=== PATIENT | female | born 1985 ===

== ENCOUNTER 2017-03-01 07:24 | Inpatient (IN) ==
[2017-03-01] MEDS ORDERED: FAMOTIDINE 20 MG/2 ML VIAL IV ONE (07:29)
[2017-03-01] MEDS ORDERED: CITRIC ACID/SODIUM CITRATE 30 ML UDCUP PO ONE (07:29)
[2017-03-01] MEDS ORDERED: CLINDAMYCIN INJ 900 MG in PREMIX 1 EACH IV ONE (07:33)
[2017-03-01] MEDS: LACTATED RINGERS 1,000 ML IV SCH ×2 (07:45→09:05)
[2017-03-01] MEDS ORDERED: OXYTOCIN/LR 30 UNIT/1,000 ML BAG IV ONE (07:49)
[2017-03-01] MEDS ORDERED: OXYTOCIN 10 UNIT/ML VIAL IM ONE (07:49)
[2017-03-01 07:56] LABS: Basophils % 0.4 % (0.0-0.8); Eosinophils # 0.1 10*3/uL (0.0-0.87); Hematocrit 35.3 VOL% (35.7-47.0); Hemoglobin 11.3 GM/DL (12.0-16.0); Immature Granulocytes % 0.4 %; Immature Granulocytes Absolute 0.03 #; Lymphocytes # 2.6 10*3/uL (1.4-4.0); Lymphocytes % 37.6 % (21.3-54.2); Mean Corpuscular Hemoglobin 27 PG (27-34); Mean Corpuscular Volume 85.5 FL (87-102); Mean Platelet Volume 11.7 FL (9.6-12.0); Monocytes # 0.4 10*3/uL (0.11-0.8); Monocytes % 5.4 % (1.7-12.7); Neutrophils # 3.8 10*3/uL (1.4-7.4); Neutrophils % 55.2 % (38.7-73.9); Platelet Count 207 T/CUMM (130-400); Red Blood Count 4.13 MC/CUMM (3.8-5.5); Red Cell Distribution Width 15.3 % (9.3-17.3); White Blood Count 6.9 T/CUMM (4-12)
[2017-03-01 08:30] LABS: Alanine Aminotransferase < 9 U/L (13-56); Albumin 2.2 G/DL (3.4-5.0); Alkaline Phosphatase 180 U/L (45-117); Aspartate Amino Transferase 13 U/L (0-37); Blood Urea Nitrogen 12 MG/DL (7-18); Calcium 8.5 MG/DL (8.5-10.1); Glucose 112 MG/DL (74-106); Osmolality,Calculated 275.7 MOS/KG (273-304); Potassium 4.4 MMOL/L (3.5-5.1); Sodium 138 MMOL/L (136-145)
[2017-03-01] MEDS ORDERED: PROPOFOL 200 MG/20 ML VIAL IV ONE (09:12)
[2017-03-01] MEDS ORDERED: ONDANSETRON 4 MG/2 ML VIAL ONE (09:12)
[2017-03-01 10:10] LABS: Cord Venous Blood HCO3 20.4 MMOL/L; Cord Venous Blood PCO2 38.9 MMHG; Cord Venous Blood PO2 37.3
--- NOTE | 2017-03-01 10:13 | OB/GYN History & Physical ---
History of Present Illness Chief complaint: section, elective sterilization History of present illness: Ms. Mc is a 31 year old female 4 with 4 living children, repeat section 2 who presents for repeat section elective sterilization risks benefits thoroughly discussed she is in full agreement patient's approximately 39 weeks gestation with an EDC of 03/08/2017 patient consented to an elective sterilization recommended that if the lower uterine segment was extremely thin then we will proceed with the bilateral tubal ligation. Home Medications Medication Instructions Recorded Confirmed Type Vits #90/Iron Fum/FA 1 tablet PO DAILY 01/12/17 02/17/17 History [ Formula Tablet] Allergies Allergy/AdvReac Type Severity Reaction Status Date / Time Amoxicillin Allergy Severe HIVES Verified 02/17/17 16:29 guaifenesin [From Robitussin] Allergy RASH Verified 02/17/17 16:29 Medical,Surgical,& Family Hx - Medical History Neurology: No history of: Seizures Reproductive: No history of: Ectopic , Complication - Surgical History Reproductive Surgeries: Patient denies;: Section - Family History Family History: Reports;: Family Diabetes (FATHER MGM PGM) Denies;: Additional Family History - Social History Smoking Status: Never smoker Frequency of Alcohol Use: None 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: 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 - Constitutional Vitals: Vital Signs Temp Pulse Resp BP Pulse Ox 03/01/17 08:00 97.7 F 81 20 138/72 99 General appearance: morbidly obese - Antepartum / Post Post Exam Cervix -Dilatation: Thick and closed - Head Head exam: Present: normal inspection - Eye Eye exam: Present: EOMI Pupils: Present: KAYLEEN - ENT ENT exam: Present: normal exam - Neck Neck exam: Present: normal inspection - Respiratory Respiratory exam: Present: clear to auscultation bilaterally - Breast Breasts: as per HPI Menstruation: as per HPI - Cardiovascular Cardiovascular exam: Present: regular rate and rhythm - GI/Abdominal GI/Abdominal exam: Present: normal bowel sounds - Extremities Exam Extremities exam: Present: normal inspection - Back Exam Back exam: Present: normal inspection - Neurological Exam Neurological exam: Present: alert, oriented X3 - Psychiatric Psychiatric exam: Present: normal affect - Skin Skin exam: Present: normal color Results - Labs CBC & BMP: 03/01/17 07:50 03/01/17 07:50
[2017-03-01] MEDS ORDERED: IBUPROFEN 800 MG TABLET PO PRN (10:16)
[2017-03-01] MEDS ORDERED: SIMETHICONE CHEW 80 MG TABLET PO PRN (10:16)
[2017-03-01] MEDS ORDERED: OXYTOCIN/LR 20 UNIT/1,000 ML BAG IV ONE ×2 (10:16→13:57)
[2017-03-01] MEDS ORDERED: ONDANSETRON 4 MG/2 ML VIAL IV PRN (10:16)
[2017-03-01] MEDS ORDERED: RHO(D) IMMUNE GLOBULIN 300 MCG SYRINGE IM ONE (10:16)
[2017-03-01] MEDS ORDERED: ACETAMINOPHEN 325 MG TABLET PO PRN (10:16)
--- NOTE | 2017-03-01 10:16 | Operative Note ---
Date of procedure: 03/01/17 Procedure: Preoperative diagnosis: Repeat section, elective sterilization Postoperative diagnosis: Same Anesthesia:[] Regional anesthesia Estimated blood loss: []300 mL Surgeon: Dr. Lamar Findings: []Extremely thin lower uterine segment, elective sterilization, male infant, delivered at 939 a.m., weight was 8 lbs. 15 oz., Apgars was 9 at 1 minute and 9 at 5 minutes Complications: None Procedure: Low transverse section, bilateral tubal ligation The patient was taken to the operating suite heart tones were obtained prior to and after regional anesthesia was obtained. She was placed in supine position her abdomen was prepped and draped in usual manner for major abdominal surgery. Through an abdominal incision the skin, subcutaneous, fascial layer and peritoneal the abdomen was entered. The bladder flap was created and a low transverse incision was made.. Fluid was clear and normal amount X, Apgars, the placenta was delivered and sent to lab for further evaluation. Injected with intrauterine Pitocin. The first layer of the uterus was closed with #1 Vicryl in a continuous locking manner. Close to imbricate the first layer with #1 Vicryl. The peritoneum was approximated with #2-0 Vicryl.[ The fallopian tubes were grasped with a Limestone clamp, the mesosalpinx was perforated, the proximal distal tube was ligated, the segment in between was excised, the cut edges were then cauterized.] All the last sponges and instruments were accounted for 2.) #2-0 Vicryl. Fascia was approximated with #0-0 Maxon.. The skin was approximated with awa. She tolerated procedure well and was taken to recovery room in stable condition. Surgeon / Physician: Liv Lamar Results - Labs CBC & BMP: 03/01/17 07:50 03/01/17 07:50 Discharge Plan - Discharge Medications No Action Vits #90/Iron Fum/FA [ Formula Tablet] 1 tablet PO DAILY - Follow Up or Referral - Forms/Instructions
[2017-03-01] MEDS ORDERED: MORPHINE 10 MG/10 ML VIAL ONE (10:25)
[2017-03-01] MEDS ORDERED: LACTATED RINGERS 1,000 ML IV SCH (10:30)
--- NOTE | 2017-03-01 10:32 | Anesthesia ---
Anesthesia Post OP - Post Ansesthetic Evaluation Patient seen in post op: Yes Resp: within normal limits CV: within normal limits Mental: within normal limits Temp: within normal limits [id number]: within normal limits Nausea and Vomiting: within normal limits Pain: within normal limits
[2017-03-01 11:13] LABS: Apearance,Urine Slightly Hazy (Clear); Bacteria,Urine Occasional /HPF (Few); Bilirubin,Urine Negative (Negative); Blood, Urine Negative (Negative); Glucose,Urine (UA) Negative (Negative); Ketones,Urine Negative (Negative); Mucus,Urine Occasional /LPF (Occasional); Nitrite,Urine Negative (Negative); Protein,Urine 100 MG/DL; RBC,Urine 4 /HPF (0-4); Squamous Epithelial Cell,Urine Occasional /HPF (0-10); Urine Color Yellow (Yellow); Urine Specific Gravity 1.025 (1.001-1.035); WBC,Urine 1 /HPF (0-6)
[2017-03-01] MEDS ORDERED: diphenhydrAMINE 50 MG/1 ML VIAL ONE (13:57)
[2017-03-01] MEDS ORDERED: diphenhydrAMINE 50 MG/1 ML VIAL IV PRN (14:03)
[2017-03-01] MEDS: CLINDAMYCIN INJ 900 MG in PREMIX 1 EACH IV SCH (17:07)
[2017-03-01 19:13] LABS: Basophils % 0.2 % (0.0-0.8); Eosinophils % 0.4 % (0.00-10.9); Hematocrit 29.7 VOL% (35.7-47.0); Hemoglobin 9.7 GM/DL (12.0-16.0); Immature Granulocytes % 0.2 %; Immature Granulocytes Absolute 0.02 #; Lymphocytes # 1.7 10*3/uL (1.4-4.0); Mean Corpuscular HGB Conc 32.7 GM/DL (32-36); Mean Corpuscular Hemoglobin 27 PG (27-34); Mean Corpuscular Volume 83.7 FL (87-102); Mean Platelet Volume 12.2 FL (9.6-12.0); Monocytes # 0.3 10*3/uL (0.11-0.8); Neutrophils % 74.2 % (38.7-73.9); Platelet Count 178 T/CUMM (130-400); Red Blood Count 3.55 MC/CUMM (3.8-5.5); White Blood Count 8.1 T/CUMM (4-12)
[2017-03-01] MEDS: DOCUSATE SODIUM 100 MG CAPSULE PO SCH (22:36)
[2017-03-02] MEDS: CLINDAMYCIN INJ 900 MG in PREMIX 1 EACH IV SCH (02:25)
[2017-03-02 04:07] LABS: Basophils % 0.3 % (0.0-0.8); Eosinophils # 0.1 10*3/uL (0.0-0.87); Eosinophils % 1.2 % (0.00-10.9); Hematocrit 29.3 VOL% (35.7-47.0); Hemoglobin 9.4 GM/DL (12.0-16.0); Immature Granulocytes % 0.5 %; Immature Granulocytes Absolute 0.04 #; Lymphocytes # 2.1 10*3/uL (1.4-4.0); Lymphocytes % 24.7 % (21.3-54.2); Mean Corpuscular HGB Conc 32.1 GM/DL (32-36); Mean Corpuscular Hemoglobin 28 PG (27-34); Mean Corpuscular Volume 85.9 FL (87-102); Mean Platelet Volume 12.6 FL (9.6-12.0); Monocytes # 0.6 10*3/uL (0.11-0.8); Neutrophils # 5.8 10*3/uL (1.4-7.4); Neutrophils % 66.3 % (38.7-73.9); Platelet Count 137 T/CUMM (130-400); Red Blood Count 3.41 MC/CUMM (3.8-5.5); Red Cell Distribution Width 15.2 % (9.3-17.3); White Blood Count 8.7 T/CUMM (4-12)
[2017-03-02 04:45] LABS: Eosinophils 1 % (0-10); Lymphocytes 21 % (20-55); Segmented Neutrophils 72 % (50-85); Total Cells Counted 100
[2017-03-02 04:46] LABS: Hypochromasia 1+; Microcytosis 1+; Platelet Estimate Adequate
[2017-03-02] MEDS: MULTIVITAMIN (PRENATAL) TABLET PO SCH (09:10)
[2017-03-02] MEDS: FERROUS SULFATE 325 MG TABLET PO SCH (09:10)
[2017-03-02] MEDS: DOCUSATE SODIUM 100 MG CAPSULE PO SCH ×2 (09:10→21:52)
[2017-03-02] MEDS: MAGNESIUM HYDROXIDE SUSP 30 ML UDCUP PO PRN ×2 (09:10→21:52)
--- NOTE | 2017-03-02 10:44 | Pathology Report from [facility] ---
ACCESSION # : [id number] PATIENT NAME : Marianna Ramsay ORDERING DR : XANDER RODRIGUEZ MD CLINICAL HX: Repeat w/bilateral tubal sterilization POST-OP DX: Same SPECIMEN INFO: #1 RT fallopian tube #2 LT fallopian tube GROSS DESCRIPTION: #1 "RT FALLOPIAN TUBE SEGMENT" consists of a 2.3 x 0.6 cm unfimbriated fallopian tube segment. A customer contact representative section submitted in cassette #1.#2 "LT FALLOPIAN TUBE SEGMENT" consists of a 2.5 x 0.6 cm unfimbriated fallopian tube segment. A customer contact representative section submitted in cassette #2. DIAGNOSIS FOR MARIANNA RAMSAY: #1 Completely transected segment of fallopian tube, right.#2 Completely transected segment of fallopian tube, left. SERVICE DATE: 03/01/2017 REPORT DATE: 03/02/2017 PATHOLOGIST: Apoorva Julien M.D. [facility] CENTERJessica
--- NOTE | 2017-03-02 14:42 | OB/GYN Progress Note ---
Assessment and Plan (1) Previous section Status: Acute Current Visit: Yes (2) S/P repeat low transverse Status: Acute Assessment and plan: Initiate routine postop orders. 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 Bonding well with infant. Exam DELINQUENCY PREVENTION OFFICER - Constitutional Vitals: Vital Signs Temp Pulse Resp BP Pulse Ox 03/02/17 11:24 97.8 F 81 20 125/64 98 03/02/17 09:00 18 03/02/17 07:33 97.3 F L 80 18 116/68 97 03/02/17 04:00 97.6 F 86 18 94/60 97 03/02/17 02:00 18 03/02/17 00:00 97.5 F L 87 18 123/60 98 03/01/17 20:00 97.4 F L 81 18 134/65 96 03/01/17 16:45 72 20 125/74 98 03/01/17 15:45 68 20 141/76 98 03/01/17 14:45 77 20 118/84 97 General appearance: normal weight, no acute distress - Antepartum / Post Post Exam Breast: bilateral: normal Abdomen obstetrics: Present: bowel sounds normal Vagina: Present: discharge (light lochia rubra) Uterus exam: Present: enlarged (FF ML) - Gyencological / Post Surgical Post Surgical Exam Lungs: bilateral: normal Chest: Normal S1, Normal S2 Extremities DELINQUENCY PREVENTION OFFICER: Present: normal Abdomen obstetrics progress note: Present: normal appearance Incision OB: Present: normal, intact - Respiratory Respiratory exam: Present: clear to auscultation bilaterally - Cardiovascular Cardiovascular exam: Present: regular rate and rhythm - GI/Abdominal GI/Abdominal exam: Present: normal bowel sounds, soft - Extremities Exam Extremities exam: Present: normal inspection - Neurological Exam Neurological exam: Present: alert, oriented X3 - Psychiatric Psychiatric exam: Present: normal affect, normal mood - Skin Skin exam: Present: normal color, warm Results - Labs CBC & BMP: 03/02/17 03:50 03/01/17 07:50
[2017-03-02] MEDS ORDERED: BENZONATATE 100 MG CAPSULE PO PRN (15:07)
[2017-03-02] MEDS: cephALEXin 500 MG CAPSULE PO SCH ×2 (17:55→23:30)
[2017-03-02] MEDS ORDERED: oxyCODONE/ACETAMINOPHEN 5-325 MG TABLET PO PRN (17:59)
[2017-03-02] MEDS: oxyCODONE/ACETAMINOPHEN 5-325 MG TABLET PO PRN (23:40)
[2017-03-03] MEDS: cephALEXin 500 MG CAPSULE PO SCH ×2 (06:03→12:20)
[2017-03-03] MEDS: oxyCODONE/ACETAMINOPHEN 5-325 MG TABLET PO PRN (06:04)
[2017-03-03] MEDS ORDERED: BISACODYL 10 MG SUPP RECTAL PRN (06:05)
[2017-03-03 07:16] VITALS: BP 120/67
[2017-03-03] MEDS: FERROUS SULFATE 325 MG TABLET PO SCH (09:25)
[2017-03-03] MEDS: DOCUSATE SODIUM 100 MG CAPSULE PO SCH (09:25)
[2017-03-03] MEDS: MULTIVITAMIN (PRENATAL) TABLET PO SCH (09:25)
--- NOTE | 2017-03-03 09:43 | Discharge Summary ---
Hospital Course - Hospital Course Hospital Course: Miss Mc is a 31-year-old female who presented in labor department for repeat section due to previous section. The patient subsequently delivered a viable infant with no complications. She has followed a normal post operative course and she has done well. Her incision is well approximated with awa. She is voiding without difficulty. Her bowel sounds are positive and she has had a normal bowel movement. The patient had had a previous abscess lanced at the [facility] that area is healing without any complications at present. She is bonding well with her infant. Her bleeding is minimal with no odor. She will be discharged to home with prescriptions for pain and a follow-up appointment in our office. Her vital signs and lab values are stable. Diagnosis - Discharge Diagnosis (1) Previous section Status: Acute (2) S/P repeat low transverse Status: Acute Discharge Plan - Discharge Data Disposition: Disch To Home/Self Care Condition at Discharge: Stable Discharge Diet: advance to your usual diet, regular diet Activity: increase activity as tolerated, no lifting, no prolonged standing Hygiene: may shower Weight Bearing at Discharge: partial weight bearing Driving: not until seen by doctor Contact your physician if you experience:: fever over 101, pain uncontrolled by pain medications - Discharge Medications New Ferrous Sulfate Tab [Feosol Original Tab] 325 mg PO DAILY #60 tablet HYDROcodone/ACETAMIN 5-325 [[place] 5-325] 2 tablet PO Q6H PRN #30 tablet PRN Reason: Pain Severe (8-10) Ibuprofen Tab [Motrin Tab] 800 mg PO Q8H PRN #30 tablet PRN Reason: Pain Severe (8-10) No Action Vits #90/Iron Fum/FA [ Formula Tablet] 1 tablet PO DAILY - Follow Up or Referral - Forms/Instructions Exam - Constitutional Vitals: Period Temp Pulse Resp BP Sys/Preciado Pulse Ox Last 24 Hr 97.5 F-97.9 F 73-88 18-20 120-146/64-87 97-100 General appearance: no acute distress - Respiratory Respiratory exam: Present: clear to auscultation bilaterally - Cardiovascular Cardiovascular exam: Present: regular rate and rhythm - GI/Abdominal GI/Abdominal exam: Present: normal bowel sounds, soft - Extremities Exam Extremities exam: Present: normal inspection - Neurological Exam Neurological exam: Present: alert, oriented X3 - Psychiatric Psychiatric exam: Present: normal affect, normal mood - Skin Skin exam: Present: normal color, warm DS: Provider Date of admission: 03/01/17 07:24 Primary care physician: Manny Escobedo MD Attending physician on admission: Liv Lamar MD Consults: 03/01/17 07:30 Consult to Anesthesiology [CONS] Routine Consulting Provider: Reason for Anesthesiology: Pre-op Clearance 03/01/17 08:09 Consult to Dietitian [CONS] Routine Reason for Dietitian: Dietary Consult 03/01/17 10:16 Consult to Ropewalk Rope Maker [CONS] Routine Consult Ropewalk Rope Maker: Breast Feeding Discharging clinician: Ashley Chaudhry CNM Expected date of discharge: 03/03/17
== END 2017-03-03 12:45 | disposition home or self-care (01) | DRG 540 ==
LOC: N.LD 07:24 → N.OB 13:40
PROVIDERS: ADMIT Obstetrics & Gynecology; ATTEND Obstetrics & Gynecology